=== PATIENT | male | born 1950 ===

== ENCOUNTER 2019-02-25 22:35 | Observation (INO) | payer MEDICARE, MEDICAID ==
[2019-02-25] MEDS ORDERED: Albuterol 0.083% Inhal Sol (2.5 mg/3 mL) UD INH STA (23:13)
[2019-02-25] MEDS ORDERED: Albuterol 0.083% Inhal Sol (2.5 mg/3 mL) UD ONE (23:21)
[2019-02-25 23:29] LABS: BASO # 0.1 K/uL (0.0-0.2); BASO % 0.7 % (0.0-2.0); EOS % 0.2 % (0.0-4.0); HEMOGLOBIN 13.5 g/dL (12.0-18.0); LYMPH # 1.7 K/uL (1.0-4.3); LYMPH % 18.2 % (20.0-40.0); MEAN CELL VOLUME 95.1 fL (80.0-94.0); MEAN CORPUSCULAR HEMOGLOBIN 32.7 pg (27.0-31.0); MEAN CORPUSCULAR HGB CONC 34.4 g/dL (33.0-37.0); MEAN PLATELET VOLUME 7.5 fL (7.2-11.7); MONO # 0.9 K/uL (0.0-0.8); MONO % 9.9 % (0.0-10.0); NEUT # 6.6 K/uL (1.8-7.0); RBC 4.13 Mil/uL (4.40-5.90); RED CELL DISTRIBUTION WIDTH 13.5 % (11.5-14.5); WHITE BLOOD COUNT 9.2 K/uL (4.8-10.8)
[2019-02-25 23:42] LABS: ALB/GLOB RATIO 1.3 (1.0-2.1); ALT/SGPT 184 U/L (21-72); AST/SGOT 222 U/L (17-59); BLOOD UREA NITROGEN 39 mg/dL (9-20); CALCIUM 8.8 mg/dl (8.6-10.4); GFR NON-AFRICAN AMERICAN > 60
[2019-02-25 23:54] LABS: B-TYPE NATRIURETIC PEPTIDE 1990 pg/mL (0-900)
--- NOTE | 2019-02-25 23:56 | C.PDOC ---
History Of Present Illness 68 y/o male heroin abuser and cigarette smoker presents to the ER c/o non- improved pneumonia. Associated sx includes cough. Pt reports he was discharged from [facility] ago for pneumonia. Last heroin use was today. Pt denies chest pain and SOB. Time Seen by Provider: 02/25/19 23:10 Chief Complaint (Nursing): Shortness Of Breath History Per: Patient History/Exam Limitations: no limitations Onset/Duration Of Symptoms: Days Current Symptoms Are (Timing): Still Present Past Medical History Reviewed: Historical Data, Nursing Documentation, Vital Signs Vital Signs: Last Vital Signs Temp 98.1 F 02/25/19 22:43 Pulse 87 02/25/19 22:43 Resp 16 02/25/19 22:43 BP 144/79 02/25/19 22:43 Pulse Ox 92 L 02/25/19 22:43 - Medical History PMH: Bronchitis, Pneumonia Family History: States: No Known Family Hx - Social History Hx Alcohol Use: Yes Hx Substance Use: Yes Review Of Systems Except As Marked, All Systems Reviewed And Found Negative. Respiratory: Positive for: Cough Physical Exam - Physical Exam Appears: Non-toxic, No Acute Distress Skin: Normal Color, Warm, Dry Head: Normacephalic Eye(s): bilateral: Normal Inspection, PERRL, EOMI Oral Mucosa: Moist Chest: Symmetrical Cardiovascular: Rhythm Regular, No Friction Rub Respiratory: Wheezing Gastrointestinal/Abdominal: Normal Exam, Soft, No Tenderness Extremity: Bilateral: Atraumatic, Normal Color And Temperature, Normal ROM Neurological/Psych: Other (arousal to verbal stimuli ) ED Course And Treatment - Laboratory Results Result Diagrams: 02/25/19 23:26 02/25/19 23:26 Lab Results: Total Bilirubin 0.7 mg/dL (0.2-1.3) 02/25/19 23:26 AST 222 U/L (17-59) H 02/25/19 23:26 ALT 184 U/L (21-72) H 02/25/19 23:26 Alkaline Phosphatase 97 U/L (38-126) 02/25/19 23:26 Total Protein 7.2 g/dL (6.3-8.3) 02/25/19 23:26 Albumin 4.0 g/dL (3.5-5.0) 02/25/19 23:26 Globulin 3.2 gm/dL (2.2-3.9) 02/25/19 23:26 Albumin/Globulin Ratio 1.3 (1.0-2.1) 02/25/19 23:26 ECG: Interpreted By Me, Viewed By Me ECG Rhythm: Sinus Rhythm ECG Interpretation: Normal Interpretation Of ECG: normal interval, normal axis, no ST/T wave abnormality Rate From EC O2 Sat by Pulse Oximetry: 92 (RA) Pulse Ox Interpretation: Normal Medical Decision Making Medical Decision Making: Assessment: Pneumonia and drug abuse plans: -- chem labs -- blood work -- EKG -- CXR -- Albuterol Disposition - Disposition Disposition Time: 01:00 Condition: STABLE Forms: [employer] (Gambian) - Clinical Impression Clinical Impression: Acute bronchospasm, Heroin abuse - Scribe Statement The provider has reviewed the documentation as recorded by the Scribjorge Ibrahim Do Provider Attestation: All medical record entries made by the Scribe were at my direction and personally dictated by me. I have reviewed the chart and agree that the record accurately reflects my personal performance of the history, physical exam, medical decision making, and the department course for this patient. I have also personally directed, reviewed, and agree with the discharge instructions and disposition. Physician Patient Turnover Patient Signed Over To: Greg Becker Handoff Comments: pending cxr, reevaluation and disposition
[2019-02-26] MEDS ORDERED: Albuterol-Ipratrop 3 mg / 0.5 (3 ml) UD INH STA ×2 (00:37→02:15)
[2019-02-26] MEDS ORDERED: Albuterol-Ipratrop 3 mg / 0.5 (3 ml) UD ONE ×2 (01:07→04:05)
[2019-02-26] MEDS ORDERED: cefTRIAXone IV 1 gm in Dextros 50 ML IVPB ONE (02:14)
--- NOTE | 2019-02-26 04:09 | CP.PCM.HP ---
<DeliaMiguel - Last Filed: 02/26/19 04:51> History of Present Illness - History of Present Illness History of Present Illness: PGY-[address] Amezcua Patient is a 68 year old homeless male with past medical history of substance abuse, bronchitis, chronic HCV (not on treatment), recent PNA presenting to ED for worsening shortness of breath, congestion, nonproductive cough. Patient states he was recently discharged from [facility] [place] 2 days ago for pneumonia, was given unknown antibiotics but did not fill out all his prescriptions as he did not have the money. No fevers/chills, headaches, dizziness, chest pain, palpitations, abdominal pain, n/v/d/c, dysuria, or changes in stool. PMHx: heroin abuse, bronchitis, recent PNA, chronic HCV PSHx: denies Allergies: denies Home Meds: None, does not have money for meds Family Hx: Mother--Lung cancer, Social Hx: few cigarettes-1/2 ppd, social drinker, heroin abuse--last used earlier today, 2 bags. Patient is homeless PMD: does not recall name Present on Admission - Present on Admission Any Indicators Present on Admission: No Review of Systems - Review of Systems All systems: reviewed and no additional remarkable complaints except Review of Systems: as per chart Past Patient History - Past Social History Smoking Status: Heavy Smoker > 10 Cigarettes Daily - PULMONARY Hx Bronchitis: Yes Hx Pneumonia: Yes - HEMATOLOGICAL/ONCOLOGICAL Hx Blood Disorders: Yes Hx Hepatitis C: Yes - PSYCHIATRIC Hx Substance Use: Yes - SURGICAL HISTORY Hx Surgeries: No Meds Allergies/Adverse Reactions: Allergies Allergy/AdvReac Type Severity Reaction Status Date / Time No Known Allergies Allergy Verified 02/25/19 22:45 Physical Exam - Constitutional Appears: No Acute Distress, Unkempt, Cachectic - Head Exam Head Exam: ATRAUMATIC, NORMAL INSPECTION, NORMOCEPHALIC - Eye Exam Eye Exam: EOMI, Normal appearance - ENT Exam ENT Exam: Mucous Membranes Dry, Normal Exam - Neck Exam Neck exam: Positive for: Full Rom, Normal Inspection - Respiratory Exam Respiratory Exam: Wheezes, NORMAL BREATHING PATTERN. absent: Accessory Muscle Use, Respiratory Distress - Cardiovascular Exam Cardiovascular Exam: REGULAR RHYTHM, +S1, +S2 - GI/Abdominal Exam GI & Abdominal Exam: Normal Bowel Sounds, Soft. absent: Distended, Firm, Guarding, Hernia, Rebound, Rigid, Tenderness - Extremities Exam Extremities exam: Positive for: normal capillary refill, normal inspection, pedal pulses present. Negative for: calf tenderness, pedal edema - Back Exam Back exam: NORMAL INSPECTION - Neurological Exam Neurological exam: Alert, Normal Gait, Oriented x3 - Skin Skin Exam: Dry, Intact, Normal Color, Warm Results - Vital Signs Recent Vital Signs: Last Vital Signs Temp 98.1 F 02/25/19 22:43 Pulse 87 02/25/19 22:43 Resp 16 02/25/19 22:43 BP 144/79 02/25/19 22:43 Pulse Ox 92 L 02/26/19 00:39 - Labs Result Diagrams: 02/25/19 23:26 02/25/19 23:26 Labs: Laboratory Results - last 24 hr 02/25/19 02/25/19 23:26 23:26 WBC 9.2 RBC 4.13 L Hgb 13.5 Hct 39.2 MCV 95.1 H MCH 32.7 H MCHC 34.4 RDW 13.5 Plt Count 295 MPV 7.5 Neut % (Auto) 71.0 Lymph % (Auto) 18.2 L [place] % (Auto) 9.9 Eos % (Auto) 0.2 Baso % (Auto) 0.7 Neut # (Auto) 6.6 Lymph # (Auto) 1.7 [place] # (Auto) 0.9 H Eos # (Auto) 0.0 Baso # (Auto) 0.1 Sodium 137 Potassium 4.4 Chloride 100 Carbon Dioxide 29 Anion Gap 13 BUN 39 H Creatinine 1.0 Est GFR ( Amer) > 60 Est GFR (Non-Af Amer) > 60 Random Glucose 164 H Calcium 8.8 Total Bilirubin 0.7 AST 222 H ALT 184 H Alkaline Phosphatase 97 Troponin I 0.0230 NT-Pro-B Natriuret Pep 1990 H Total Protein 7.2 Albumin 4.0 Globulin 3.2 Albumin/Globulin Ratio 1.3 Alcohol, Quantitative < 10 Assessment & Plan - Assessment and Plan (Free Text) Assessment: 68 year old homeless male with pmhx of heroin abuse, HCV, bronchitis, recent PNA presenting to ED for worsening sob, nonproductive cough. Plan: Shortness of breath -CXR: hyperinflated lungs noted, pulmonary venous congestion (f/u official read) -EKG: NSR @ 73 bpm, no st or t wave changes -mycoplasma, legionella, influenza, HIV -duonebs 3 q4 nikita -solumedrol 40 IVP daily -empiric abx -azithromucin 500 mg PO daily -rocephin 1 gm IVP daily Substance abuse -patient endorses snorting 2 bags heroin earlier today -f/u UDS -Psych consult for possible detox Hx of HCV -not on active treatment -hepatitis panel -HCV viral load Ppx, Diet, Dispositon -DVT ppx: scds, heparin 500 units sc q8 -GI ppx: not indicated at this time -Diet: HHD Case discussed with Dr. Goldie Lin DO, PGY-1 <Denny Amezcua - Last Filed: 02/26/19 06:15> Results - Vital Signs Recent Vital Signs: Last Vital Signs Temp 98.0 F 02/26/19 05:45 Pulse 92 H 02/26/19 05:45 Resp 18 02/26/19 05:45 BP 138/68 02/26/19 05:45 Pulse Ox 93 L 02/26/19 05:45 - Labs Result Diagrams: 02/25/19 23:26 02/25/19 23:26 Labs: Laboratory Results - last 24 hr 02/25/19 02/25/19 23:26 23:26 WBC 9.2 RBC 4.13 L Hgb 13.5 Hct 39.2 MCV 95.1 H MCH 32.7 H MCHC 34.4 RDW 13.5 Plt Count 295 MPV 7.5 Neut % (Auto) 71.0 Lymph % (Auto) 18.2 L [place] % (Auto) 9.9 Eos % (Auto) 0.2 Baso % (Auto) 0.7 Neut # (Auto) 6.6 Lymph # (Auto) 1.7 [place] # (Auto) 0.9 H Eos # (Auto) 0.0 Baso # (Auto) 0.1 Sodium 137 Potassium 4.4 Chloride 100 Carbon Dioxide 29 Anion Gap 13 BUN 39 H Creatinine 1.0 Est GFR ( Amer) > 60 Est GFR (Non-Af Amer) > 60 Random Glucose 164 H Calcium 8.8 Total Bilirubin 0.7 AST 222 H ALT 184 H Alkaline Phosphatase 97 Troponin I 0.0230 NT-Pro-B Natriuret Pep 1989 H Total Protein 7.2 Albumin 4.0 Globulin 3.2 Albumin/Globulin Ratio 1.3 Alcohol, Quantitative < 10 Assessment & Plan - Date & Time Date: 02/26/19 (I have seen and examined the patient. I agree with the findings and plan of care as documented by Dr. Lin. Patient with SOB. History of recent pneumonia. Admits to not taking oral antibiotics after discharge. Rocephin and Azithromycin for now. Sputum and blood cultures. Substance abuse. Consult to psych. Monitor for signs and symptoms of withdrawal. Monitor for acute changes.) Time: 06:13 Attending/Attestation - Attestation I have personally seen and examined this patient.: Yes I have fully participated in the care of the patient.: Yes I have reviewed all pertinent clinical information: Yes
[2019-02-26] MEDS: Albuterol-Ipratrop 3 mg / 0.5 (3 ml) UD INH SCH ×4 (07:06→20:02)
--- NOTE | 2019-02-26 07:38 | CP.PCM.PN ---
<Ambrocio Corey - Last Filed: 02/26/19 15:24> Subjective - Date & Time of Evaluation Date of Evaluation: 02/26/19 Time of Evaluation: 07:37 - Subjective Subjective: Medicine Progress Note: Patient seen and examined at bedside. Per nursing no acute events occurred overnight .Patient denies any fevers, chills, headaches, dizziness, abdominal pain, or any other complaints. Objective - Vital Signs/Intake and Output Vital Signs (last 24 hours): Temp Pulse Resp BP Pulse Ox 98.2 F 60 20 165/74 H 95 02/26/19 06:00 02/26/19 06:55 02/26/19 06:00 02/26/19 06:00 02/26/19 06:00 - Medications Medications: Current Medications Albuterol/Ipratropium (Duoneb 3 Mg/0.5 Mg (3 Ml) Ud) 3 ml INH RQ4 NIKITA Azithromycin (Zithromax) 500 mg PO DAILY NIKITA; Protocol Heparin Sodium (Porcine) (Heparin) 5,000 units SC Q8 NKIITA Last Admin: 02/26/19 06:40 Dose: 5,000 units Ceftriaxone Sodium 1 gm/ (Sodium Chloride) 100 mls @ 100 mls/hr IVPB DAILY NIKITA; Protocol Methylprednisolone (Solu-Medrol) 40 mg IVP DAILY NIKITA - Labs Labs: 02/25/19 23:26 02/25/19 23:26 - Head Exam Head Exam: ATRAUMATIC, NORMAL INSPECTION - Eye Exam Eye Exam: EOMI, Normal appearance, PERRL Pupil Exam: NORMAL ACCOMODATION - ENT Exam ENT Exam: Mucous Membranes Moist, Normal Oropharynx - Respiratory Exam Respiratory Exam: Clear to Ausculation Bilateral, NORMAL BREATHING PATTERN. absent: Prolonged Expiratory Phase, Respiratory Distress - Cardiovascular Exam Cardiovascular Exam: REGULAR RHYTHM, +S1, +S2 - GI/Abdominal Exam GI & Abdominal Exam: Soft, Normal Bowel Sounds. absent: Hyperactive Bowel Sounds - Extremities Exam Extremities Exam: Normal Inspection. absent: Full ROM, Pedal Edema - Back Exam Back Exam: NORMAL INSPECTION. absent: CVA tenderness (R), paraspinal tenderness - Neurological Exam Neurological Exam: Alert, Awake, CN II-XII Intact, Oriented x3 - Psychiatric Exam Psychiatric exam: Normal Affect, Normal Mood. absent: Depressed - Skin Skin Exam: Dry, Intact Assessment and Plan - Assessment and Plan (Free Text) Plan: 68 year old homeless male with pmhx of heroin abuse, HCV, bronchitis, recent PNA presenting to ED for worsening sob, nonproductive cough. Plan: Shortness of breath -CXR: hyperinflated lungs noted, pulmonary venous congestion (f/u official read) -EKG: NSR @ 73 bpm, no st or t wave changes -Influenza negative -mycoplasma, legionella, HIV -duonebs 3 q4 nikita -solumedrol 40 IVP daily -empiric abx -azithromycin 500 mg PO daily -rocephin 1 gm IVP daily Substance abuse -patient endorses snorting 2 bags heroin earlier today -f/u UDS -Psych consult for possible detox Hx of HCV -Hep c antibody positive. -HCV viral load. Will f/u with results. Ppx, Diet, Dispositon -DVT ppx: scds, heparin 500 units sc q8 -GI ppx: not indicated at this time -Diet: HHD Plan discussed with Dr. Mcclure. Ambrocio Corey, PGY-2 <Yisel Mcclure - Last Filed: 02/26/19 16:58> Objective - Vital Signs/Intake and Output Vital Signs (last 24 hours): Temp Pulse Resp BP Pulse Ox 97.4 F L 59 L 18 148/75 97 02/26/19 12:00 02/26/19 16:00 02/26/19 12:00 02/26/19 12:00 02/26/19 12:00 Intake and Output: 02/26/19 02/26/19 06:59 18:59 Intake Total 600 Balance 600 - Medications Medications: Current Medications Albuterol/Ipratropium (Duoneb 3 Mg/0.5 Mg (3 Ml) Ud) 3 ml INH RQ4 NIKITA Last Admin: 02/26/19 16:05 Dose: 3 ml Azithromycin (Zithromax) 500 mg PO DAILY NIKITA; Protocol Last Admin: 02/26/19 10:58 Dose: 500 mg Heparin Sodium (Porcine) (Heparin) 5,000 units SC Q8 NIKITA Last Admin: 02/26/19 13:29 Dose: 5,000 units Ceftriaxone Sodium 1 gm/ (Sodium Chloride) 100 mls @ 100 mls/hr IVPB DAILY NIKITA; Protocol Last Admin: 02/26/19 10:58 Dose: 100 mls/hr Methylprednisolone (Solu-Medrol) 40 mg IVP DAILY NIKITA Last Admin: 02/26/19 10:57 Dose: 40 mg - Labs Labs: 02/25/19 23:26 02/25/19 23:26 APTT 28 SECONDS (21-34) 02/26/19 08:30 Attending/Attestation - Attestation I have personally seen and examined this patient.: Yes I have fully participated in the care of the patient.: Yes I have reviewed all pertinent clinical information, including history, physical exam and plan: Yes Notes (Text): seen and examined came fro worsening sob feels better continue solumedrol and antibiotics possible discharge tomorrow
[2019-02-26 08:52] LABS: PARTIAL THROMBOPLASTIN TIME 28 SECONDS (21-34)
[2019-02-26 09:33] LABS: HEPATITIS B SURFACE AG Negative (NEGATIVE)
[2019-02-26 09:38] LABS: HEPATITIS B CORE AB NEGATIVE (NEGATIVE)
[2019-02-26 09:39] LABS: HEPATITIS A IGM NEGATIVE (NEGATIVE)
[2019-02-26 09:44] LABS: HDL CHOLESTEROL 51 mg/dL (30-70)
[2019-02-26 09:55] LABS: LDL CHOLESTEROL 94 mg/dL (0-129)
--- NOTE | 2019-02-26 10:34 | RAD ---
Date of service: 02/26/2019 HISTORY: SOB COMPARISON: No prior. TECHNIQUE: Chest PA and lateral views FINDINGS: LUNGS: No active pulmonary disease. PLEURA: No significant pleural effusion identified. No pneumothorax apparent. CARDIOVASCULAR: No aortic atherosclerotic calcification present. Normal cardiac size. No pulmonary vascular congestion. OSSEOUS STRUCTURES: No significant abnormalities. VISUALIZED UPPER ABDOMEN: Normal. OTHER FINDINGS: None. IMPRESSION: No acute pulmonary disease.
[2019-02-26] MEDS: MethylPREDNISolone 40 mg Vial IVP SCH (10:57)
[2019-02-26 11:03] LABS: HEPATITIS C ANTIBODY REACTIVE (NEGATIVE)
[2019-02-26 17:06] VITALS: RESP 20
[2019-02-26 18:43] LABS: URINE BILIRUBIN NEGATIVE (NEGATIVE); URINE COLOR YELLOW (YELLOW); URINE GLUCOSE (UA) NORMAL (Normal)
[2019-02-26 18:44] LABS: URINE BLOOD NEGATIVE (NEGATIVE); URINE LEUKOCYTE ESTERASE NEGATIVE Leu/uL (Negative); URINE PROTEIN NEGATIVE (NEGATIVE); URINE UROBILINOGEN NORMAL mg/dL (0.2-1.0)
[2019-02-26 18:47] LABS: BARBITURATES, UR NEGATIVE (NEGATIVE); BENZODIAZEPINES, UR POSITIVE (NEGATIVE)
[2019-02-26 18:48] LABS: OPIATES, UR POSITIVE (NEGATIVE); PHENCYCLIDINE, UR NEGATIVE (NEGATIVE)
[2019-02-27] MEDS: Albuterol-Ipratrop 3 mg / 0.5 (3 ml) UD INH SCH ×4 (00:29→11:19)
--- NOTE | 2019-02-27 07:40 | CP.PCM.PN ---
Subjective - Date & Time of Evaluation Date of Evaluation: 02/27/19 Time of Evaluation: 07:40 - Subjective Subjective: Medicine Progress Note: Patient seen and examined at bedside. Per nursing no acute events occurred overnight .Patient denies any fevers, chills, headaches, dizziness, abdominal pain, or any other complaints. Objective - Vital Signs/Intake and Output Vital Signs (last 24 hours): Temp Pulse Resp BP Pulse Ox 97.6 F 62 20 131/63 95 02/27/19 05:34 02/27/19 05:34 02/27/19 05:34 02/27/19 05:34 02/27/19 05:34 Intake and Output: 02/27/19 02/27/19 06:59 18:59 Intake Total 320 Output Total 450 Balance -130 - Medications Medications: Current Medications Albuterol/Ipratropium (Duoneb 3 Mg/0.5 Mg (3 Ml) Ud) 3 ml INH RQ4 NIKITA Last Admin: 02/27/19 07:36 Dose: 3 ml Azithromycin (Zithromax) 500 mg PO DAILY NIKITA; Protocol Last Admin: 02/26/19 10:58 Dose: 500 mg Heparin Sodium (Porcine) (Heparin) 5,000 units SC Q8 NIKITA Last Admin: 02/27/19 05:30 Dose: 5,000 units Ceftriaxone Sodium 1 gm/ (Sodium Chloride) 100 mls @ 100 mls/hr IVPB DAILY NIKITA; Protocol Last Admin: 02/26/19 10:58 Dose: 100 mls/hr Methylprednisolone (Solu-Medrol) 40 mg IVP DAILY NIKITA Last Admin: 02/26/19 10:57 Dose: 40 mg - Labs Labs: 02/25/19 23:26 02/25/19 23:26 APTT 28 SECONDS (21-34) 02/26/19 08:30 - Head Exam Head Exam: ATRAUMATIC, NORMAL INSPECTION - Eye Exam Eye Exam: EOMI, Normal appearance, PERRL. absent: Periorbital tenderness Pupil Exam: NORMAL ACCOMODATION, PERRL. absent: Irregular, Unequal - ENT Exam ENT Exam: Mucous Membranes Moist, Normal Oropharynx - Respiratory Exam Respiratory Exam: Clear to Ausculation Bilateral, NORMAL BREATHING PATTERN. absent: Prolonged Expiratory Phase, Respiratory Distress - Cardiovascular Exam Cardiovascular Exam: REGULAR RHYTHM, RRR, +S1, +S2. absent: Rubs - GI/Abdominal Exam GI & Abdominal Exam: Soft, Normal Bowel Sounds. absent: Hyperactive Bowel Sounds - Extremities Exam Extremities Exam: Normal Inspection. absent: Pedal Edema - Back Exam Back Exam: NORMAL INSPECTION. absent: CVA tenderness (R), paraspinal tenderness - Neurological Exam Neurological Exam: Alert, CN II-XII Intact, Oriented x3 - Psychiatric Exam Psychiatric exam: Normal Affect, Normal Mood. absent: Depressed - Skin Skin Exam: Dry, Intact, Normal Color. absent: Pallor Assessment and Plan - Assessment and Plan (Free Text) Plan: 68 year old homeless male with pmhx of heroin abuse, HCV, bronchitis, recent PNA presenting to ED for worsening sob, nonproductive cough. Plan: Shortness of breath -CXR: hyperinflated lungs noted, pulmonary venous congestion (f/u official read) -EKG: NSR @ 73 bpm, no st or t wave changes -Influenza negative -mycoplasma, legionella, HIV -duonebs 3 q4 nikita -solumedrol 40 IVP daily -empiric abx -azithromycin 500 mg PO daily -rocephin 1 gm IVP daily Substance abuse -patient endorses snorting 2 bags heroin earlier today -UDS: Opiates, Benzodiazepines positive -Psych consult for possible detox Hx of HCV -Hep c antibody positive. -HCV viral load. Will f/u with results. Ppx, Diet, Dispositon -DVT ppx: scds, heparin 500 units sc q8 -GI ppx: not indicated at this time -Diet: HHD Plan discussed with Dr. Mcclure. Ambrocio Corey, PGY-2
[2019-02-27 08:23] LABS: BASO % 0.2 % (0.0-2.0); EOS % 0.1 % (0.0-4.0); HEMOGLOBIN 14.8 g/dL (12.0-18.0); LYMPH # 1.2 K/uL (1.0-4.3); LYMPH % 12.7 % (20.0-40.0); MEAN CELL VOLUME 94.7 fL (80.0-94.0); MEAN CORPUSCULAR HEMOGLOBIN 33.2 pg (27.0-31.0); MEAN CORPUSCULAR HGB CONC 35.1 g/dL (33.0-37.0); MEAN PLATELET VOLUME 7.9 fL (7.2-11.7); MONO # 0.8 K/uL (0.0-0.8); MONO % 8.8 % (0.0-10.0); NEUT # 7.2 K/uL (1.8-7.0); NEUT % 78.2 % (50.0-75.0); NRBC % 0.1 % (0.0-2.0); RBC 4.44 Mil/uL (4.40-5.90); RED CELL DISTRIBUTION WIDTH 13.5 % (11.5-14.5); WHITE BLOOD COUNT 9.3 K/uL (4.8-10.8)
[2019-02-27 08:38] LABS: ALB/GLOB RATIO 1.2 (1.0-2.1); ALBUMIN 3.7 g/dL (3.5-5.0); ALT/SGPT 139 U/L (21-72); AST/SGOT 116 U/L (17-59); BLOOD UREA NITROGEN 29 mg/dL (9-20); CALCIUM 8.8 mg/dl (8.6-10.4); GFR NON-AFRICAN AMERICAN > 60
[2019-02-27 08:56] VITALS: PULSE 77
[2019-02-27] MEDS: MethylPREDNISolone 40 mg Vial IVP SCH (10:23)
--- NOTE | 2019-02-27 11:26 | CP.PCM.DIS ---
Provider - Provider Date of Admission: 02/26/19 04:03 Attending physician: Denny Amezcua MD Consults: 02/26/19 04:49 Psychiatry Consult Routine Comment: Consulting Provider: Rosalba Shine Consulting Physician: Rosalba Shine Reason for Consult: heroin abuse Time Spent in preparation of Discharge (in minutes): 45 Hospital Course - Lab Results Lab Results: Micro Results 02/26/19 07:30 Blood Blood Culture - Preliminary NO GROWTH AFTER 24 HOURS 02/26/19 07:00 Blood Blood Culture - Preliminary NO GROWTH AFTER 24 HOURS Most Recent Lab Values WBC 9.3 K/uL (4.8-10.8) 02/27/19 07:57 RBC 4.44 Mil/uL (4.40-5.90) 02/27/19 07:57 Hgb 14.8 g/dL (12.0-18.0) 02/27/19 07:57 Hct 42.1 % (35.0-51.0) 02/27/19 07:57 MCV 94.7 fL (80.0-94.0) H 02/27/19 07:57 MCH 33.2 pg (27.0-31.0) H 02/27/19 07:57 MCHC 35.1 g/dL (33.0-37.0) 02/27/19 07:57 RDW 13.5 % (11.5-14.5) 02/27/19 07:57 Plt Count 321 K/uL (130-400) 02/27/19 07:57 MPV 7.9 fL (7.2-11.7) 02/27/19 07:57 Neut % (Auto) 78.2 % (50.0-75.0) H 02/27/19 07:57 Lymph % (Auto) 12.7 % (20.0-40.0) L 02/27/19 07:57 Sierra % (Auto) 8.8 % (0.0-10.0) 02/27/19 07:57 Eos % (Auto) 0.1 % (0.0-4.0) 02/27/19 07:57 Baso % (Auto) 0.2 % (0.0-2.0) 02/27/19 07:57 Neut # (Auto) 7.2 K/uL (1.8-7.0) H 02/27/19 07:57 Lymph # (Auto) 1.2 K/uL (1.0-4.3) 02/27/19 07:57 Sierra # (Auto) 0.8 K/uL (0.0-0.8) 02/27/19 07:57 Eos # (Auto) 0.0 K/uL (0.0-0.7) 02/27/19 07:57 Baso # (Auto) 0.0 K/uL (0.0-0.2) 02/27/19 07:57 APTT 28 SECONDS (21-34) 02/26/19 08:30 Sodium 136 mmol/L (132-148) 02/27/19 07:57 Potassium 3.6 mmol/L (3.6-5.2) 02/27/19 07:57 Chloride 97 mmol/L (98-107) L 02/27/19 07:57 Carbon Dioxide 34 mmol/L (22-30) H 02/27/19 07:57 Anion Gap 8 (10-20) L 02/27/19 07:57 BUN 29 mg/dL (9-20) H 02/27/19 07:57 Creatinine 0.7 mg/dL (0.8-1.5) L 02/27/19 07:57 Est GFR ( Amer) > 60 02/27/19 07:57 Est GFR (Non-Af Amer) > 60 02/27/19 07:57 Random Glucose 102 mg/dL (75-110) D 02/27/19 07:57 Hemoglobin A1c 6.0 % (4.2-6.5) 02/26/19 08:30 Calcium 8.8 mg/dl (8.6-10.4) 02/27/19 07:57 Phosphorus 2.7 mg/dL (2.5-4.5) 02/27/19 07:57 Magnesium 2.4 mg/dL (1.6-2.3) H 02/27/19 07:57 Total Bilirubin 0.6 mg/dL (0.2-1.3) 02/27/19 07:57 AST 116 U/L (17-59) H D 02/27/19 07:57 ALT 139 U/L (21-72) H D 02/27/19 07:57 Alkaline Phosphatase 90 U/L (38-126) 02/27/19 07:57 Troponin I 0.0230 ng/mL (0.00-0.120) 02/25/19 23:26 NT-Pro-B Natriuret Pep 1990 pg/mL (0-900) H 02/25/19 23:26 Total Protein 6.7 g/dL (6.3-8.3) 02/27/19 07:57 Albumin 3.7 g/dL (3.5-5.0) 02/27/19 07:57 Globulin 3.1 gm/dL (2.2-3.9) 02/27/19 07:57 Albumin/Globulin Ratio 1.2 (1.0-2.1) 02/27/19 07:57 Triglycerides 52 mg/dL (0-149) 02/26/19 08:30 Cholesterol 154 mg/dL (0-199) 02/26/19 08:30 LDL Cholesterol Direct 94 mg/dL (0-129) 02/26/19 08:30 HDL Cholesterol 51 mg/dL (30-70) 02/26/19 08:30 Urine Color Yellow (YELLOW) 02/26/19 18:04 Urine pH 5.0 (5.0-8.0) 02/26/19 18:04 Ur Specific Gilbert 1.016 (1.003-1.030) 02/26/19 18:04 Urine Protein Negative mg/dL (NEGATIVE) 02/26/19 18:04 Urine Glucose (UA) Normal mg/dL (Normal) 02/26/19 18:04 Urine Ketones Negative mg/dL (NEGATIVE) 02/26/19 18:04 Urine Blood Negative (NEGATIVE) 02/26/19 18:04 Urine Nitrate Negative (NEGATIVE) 02/26/19 18:04 Urine Bilirubin Negative (NEGATIVE) 02/26/19 18:04 Urine Urobilinogen Normal mg/dL (0.2-1.0) 02/26/19 18:04 Ur Leukocyte Esterase Negative Bladimir/uL (Negative) 02/26/19 18:04 Urine Opiates Screen Positive (NEGATIVE) H 02/26/19 18:04 Urine Methadone Screen Negative (NEGATIVE) 02/26/19 18:04 Ur Barbiturates Screen Negative (NEGATIVE) 02/26/19 18:04 Ur Phencyclidine Scrn Negative (NEGATIVE) 02/26/19 18:04 Ur Amphetamines Screen Negative (NEGATIVE) 02/26/19 18:04 U Benzodiazepines Scrn Positive (NEGATIVE) H 02/26/19 18:04 U Oth Cocaine Metabols Negative (NEGATIVE) 02/26/19 18:04 U Cannabinoids Screen Negative (NEGATIVE) 02/26/19 18:04 Alcohol, Quantitative < 10 mg/dl (0-10) 02/25/19 23:26 Hepatitis A IgM Ab Negative (NEGATIVE) 02/26/19 08:30 Hep Bs Antigen Negative (NEGATIVE) 02/26/19 08:30 Hep B Core IgM Ab Negative (NEGATIVE) 02/26/19 08:30 Hepatitis C Antibody Reactive (NEGATIVE) 02/26/19 08:30 HIV 1&2 Antibody Screen Negative (NEGATIVE) 02/26/19 08:30 Influenza Typ A,B (EIA) Negative for flu a/b (NEGATIVE) 02/26/19 08:15 Ur L.pneumophila Ag Negative (NEGATIVE) 02/26/19 18:04 - Hospital Course Hospital Course: Patient is a 68 year old homeless male with past medical history of substance abuse, bronchitis, chronic HCV (not on treatment), recent PNA present ing to ED for worsening shortness of breath, congestion, nonproductive cough. Patient states he was recently discharged from [facility] 2 days ago for pneumonia, was given unknown antibiotics but did not fill out all his prescriptions as he did not have the money. No fevers/chills, headaches, dizziness, chest pain, palpitations, abdominal pain, n/v/d/c, dysuria, or changes in stool. PMHx: heroin abuse, bronchitis, recent PNA, chronic HCV PSHx: denies Allergies: denies Home Meds: None, does not have money for meds Family Hx: Mother--Lung cancer, Social Hx: few cigarettes-1/2 ppd, social drinker, heroin abuse--last used earlier today, 2 bags. Patient is homeless PMD: does not recall name Hospital Course: While admitted patient was found to be short of breath. Influenza was negative. Patient was started on duonebs and iv steroids and antibiotics for coverage of possible pneumonia. Legionella and HIV were found to be negative during admission. Patient also found to be hepatitis C reactive. UDS was posiitve for opiates and benzodiazepines. Patient was re-evaluated and found to be breathing better. Patient was discharged with the following instructions. Imaging: -CXR: hyperinflated lungs noted, pulmonary venous congestion (f/u official read) -EKG: NSR @ 73 bpm, no st or t wave changes (See EMR for full report) Instructions: 1.F/u with PMD within 5 days of discharge. 2. Return to hospital for any new or worsening symptoms. Medications: 1.Medrol dose joseph, PO DAILY, #21, No refills 2.Z joseph , PO DAILY, #6, No refills 3.Proventil 2 puff inh rq6, 1 Inhaler, No refills Discharge Exam - Head Exam Head Exam: ATRAUMATIC, NORMAL INSPECTION - Eye Exam Eye Exam: EOMI, Normal appearance, PERRL Pupil Exam: NORMAL ACCOMODATION, PERRL. absent: Irregular, Unequal - ENT Exam ENT Exam: Mucous Membranes Moist, Normal Oropharynx - Respiratory Exam Respiratory Exam: Clear to PA & Lateral, NORMAL BREATHING PATTERN - Cardiovascular Exam Cardiovascular Exam: REGULAR RHYTHM, +S1, +S2 - GI/Abdominal Exam GI & Abdominal Exam: Normal Bowel Sounds, Unremarkable. absent: Hypoactive Bowel Sounds, Organomegaly - Extremities Exam Extremities exam: full ROM, normal inspection - Back Exam Back exam: NORMAL INSPECTION. absent: CVA tenderness (R), paraspinal tenderness - Neurological Exam Neurological exam: Alert, CN II-XII Intact, Oriented x3 - Psychiatric Exam Psychiatric exam: Normal Affect, Normal Mood - Skin Skin Exam: Dry, Intact Discharge Plan - Discharge Medications Prescriptions: Albuterol Sulfate [Proventil Hfa] 0.09 mg IH Q6 #1 inhaler Azithromycin [Z-Joseph] 250 mg PO DAILY #6 tab Methylprednisolone [Medrol Dose Pack (21 tabs)] 4 mg PO DAILY #21 mg - Follow Up Plan Condition: STABLE Disposition: HOME/ ROUTINE Instructions: Chronic Obstructive Pulmonary Disease (COPD), Including Emphysema, Azithromycin (Systemic), Drug Abuse and Drug Addiction (DC), Exacerbation of COPD (DC), Albuterol, Methylprednisolone Additional Instructions: Dishcarge Instructions: 1.F/u with PMD within 5 days of discharge. 2.Return to hospital for any new or worsening symptoms. Medications: 1.Medrol dose joseph, PO DAILY, #21, No refills 2.Z-joseph, PO DAILY, #6, No refills 3.Proventil 2 puffs rq6, 1 inhaler, No refills Referrals: Clinic,Med Surg [Non-Staff] -
[2019-02-27] MEDS ORDERED: Influenza Vaccine 60 mcg/0.5 mL SYR (4YR UP) IM ONE (13:30)
[2019-02-27] MEDS ORDERED: Pneumococcal 23-Valent Vaccine IM ONE (13:30)
[2019-02-27 17:31] VITALS: BP 139/66; TEMP 97.9; O2SAT 95
== END 2019-02-27 17:31 | disposition home or self-care (01) ==
LOC: C.ER 22:35 → C.6T 02-26 04:03
PROVIDERS: ADMIT Family Medicine; ATTEND Family Medicine
DX: J18.9 Pneumonia, unspecified organism (principal); J98.01 Acute bronchospasm; F17.210 Nicotine dependence, cigarettes, uncomplicated; Z80.1 Family history of malignant neoplasm of trachea, bronchus and lung; J40 Bronchitis, not specified as acute or chronic; B18.2 Chronic viral hepatitis C; F11.10 Opioid abuse, uncomplicated; Z23 Encounter for immunization
CPT/HCPCS: 36415; 71046; 80053; 80061; 80074; 81001; 83036; 83735; 83880; 84100; 84484; 85025; 85610; 85730; 86703; 86738; 87040; 87086; 87449; 87521; 87804; 90674; 90732; 94640; 96374; 96376; 97116; 97162; 99285; G0008; G0009; G0378; G0480; G8978; G8979; J0696; J1644; J1940; J2920; J2930